=== PATIENT | female | born 1990 | race Caucasian/White ===

== ENCOUNTER 2022-03-19 02:06 | Emergency (ER) | payer MEDICAID ==
[~2022-03-19] VITALS: Ht 160 cm; Wt 75.0 kg
[2022-03-19 02:13] VITALS: BP 132/85
[2022-03-19] MEDS ORDERED: TETRACAINE 0.5% OPHTH DROPS 4ML BOTHEYE ONE (05:30)
[2022-03-19] MEDS ORDERED: FLUORESCEIN SODIUM 1MG/STRIP BOTHEYE ONE (05:30)
[2022-03-19] MEDS ORDERED: TOBRAMYCIN 0.3% OPHTH DROPS 5ML RIGHTEYE STA (05:49)
[2022-03-19] MEDS ORDERED: TETANUS, DIPHTHERIA, PERTUSSIS VAC/PF 0.5ML (>10YR OLD) IM ONE (06:00)
== END 2022-03-19 06:20 | disposition home or self-care (01) ==
LOC: ER 02:06
DX: S00.212A Abrasion of left eyelid and periocular area, initial encounter (principal); Z88.0 Allergy status to penicillin; X58.XXXA Exposure to other specified factors, initial encounter; Y93.89 Activity, other specified; Y92.89 Other specified places as the place of occurrence of the external cause; Y99.8 Other external cause status
CPT/HCPCS: 90471; 90715; 99283